=== PATIENT | female | born 1990 | race Two or more races ===

== ENCOUNTER 2017-07-12 15:32 | Outpatient (CLI) | payer OTHER | END 2017-07-12 15:42 | disposition home or self-care (01) | LOC: LAB 15:32 | DX: Z11.3 Encounter for screening for infections with a predominantly sexual mode of transmission (principal) ==

== ENCOUNTER 2017-07-18 16:30 | Emergency (ER) | payer OTHER ==
[~2017-07-18] VITALS: Ht 160 cm; Wt 90.7 kg
== END 2017-07-18 19:01 | disposition home or self-care (01) ==
LOC: ER 16:30
DX: R42 Dizziness and giddiness (principal)

== ENCOUNTER 2025-01-18 11:53 | Outpatient (CLI) | payer OTHER ==
[~2025-01-18 11:53] MED LIST: FOLIC ACID0.4 MG PO; IRON18 MG PO
== END 2025-01-18 11:56 | disposition home or self-care (01) ==
LOC: PRENATAL 11:53
PROVIDERS: ATTEND Obstetrics & Gynecology Maternal & Fetal Medicine
DX: O44.03 Complete placenta previa NOS or without hemorrhage, third trimester (principal); O36.8130 Decreased fetal movements, third trimester, not applicable or unspecified; O09.523 Supervision of elderly multigravida, third trimester; O24.313 Unspecified pre-existing diabetes mellitus in pregnancy, third trimester; O99.283 Endocrine, nutritional and metabolic diseases complicating pregnancy, third trimester; O26.23 Pregnancy care for patient with recurrent pregnancy loss, third trimester; Z3A.33 33 weeks gestation of pregnancy

== ENCOUNTER → 2025-02-04 10:33 | Outpatient (CLI) | payer OTHER | END | disposition home or self-care (01) | LOC: PRENATAL 10:33 | PROVIDERS: ATTEND Obstetrics & Gynecology Maternal & Fetal Medicine | DX: O26.843 Uterine size-date discrepancy, third trimester (principal); O36.8130 Decreased fetal movements, third trimester, not applicable or unspecified; O09.523 Supervision of elderly multigravida, third trimester; O24.313 Unspecified pre-existing diabetes mellitus in pregnancy, third trimester; O99.283 Endocrine, nutritional and metabolic diseases complicating pregnancy, third trimester; O26.23 Pregnancy care for patient with recurrent pregnancy loss, third trimester; Z3A.36 36 weeks gestation of pregnancy ==